=== PATIENT | male | born 1980 | race Caucasian/White ===

== ENCOUNTER 2016-11-17 02:30 | Emergency (ER) | payer OTHER ==
[2016-11-17 02:40] VITALS: BP 162/88; PULSE 85; RESP 18; TEMP 98.2
[2016-11-17] MEDS ORDERED: PENICILLIN VK 500MG STARTER 4 TAB BTL PO STA (02:50)
[2016-11-17] MEDS ORDERED: BUPIVACAINE (PF) 0.5% 30 ML VIAL SQ STA (02:50)
[2016-11-17] MEDS ORDERED: ACET/COD 300 MG/30 MG STARTER PACK 6 TAB BTL PO STA (02:50)
--- NOTE | 2016-11-17 02:53 | ED ---
ENT HPI - General Chief complaint: Dental/Oral Stated complaint: Dental Pain Time Seen by Provider: 11/17/16 02:41 Source: patient Mode of arrival: ambulatory Limitations: no limitations - Related Data Previous Rx's Medication Instructions Recorded Acetaminophen-Codeine 300-30mg 1 tab PO Q6H PRN #15 tablet 11/17/16 [Tylenol #3] Penicillin V Potassium [Pen Vee K] 500 mg PO QID #40 tab 11/17/16 Allergies Allergy/AdvReac Type Severity Reaction Status Date / Time No Known Allergies Allergy Verified 11/17/16 02:38 Review of Systems ROS Statement: Those systems with pertinent positive or pertinent negative responses have been documented in the HPI. ROS Other: All systems not noted in ROS Statement are negative. Past Medical History Past Medical History: No Reported History History of Any Multi-Drug Resistant Organisms: None Reported Past Surgical History: Orthopedic Surgery Past Psychological History: No Psychological Hx Reported Smoking Status: Current every day smoker Past Alcohol Use History: None Reported Past Drug Use History: None Reported General Exam Limitations: no limitations General appearance: alert, in no apparent distress Head exam: Present: atraumatic, normocephalic, normal inspection Eye exam: Present: normal appearance, PERRL, EOMI. Absent: scleral icterus, conjunctival injection, periorbital swelling ENT exam: Present: normal exam, mucous membranes moist, other. Absent: normal oropharynx (Tooth number 30 is broken), TM's normal bilaterally Neck exam: Present: normal inspection. Absent: tenderness, meningismus, lymphadenopathy Respiratory exam: Present: normal lung sounds bilaterally. Absent: respiratory distress, wheezes, rales, rhonchi, stridor Cardiovascular Exam: Present: regular rate, normal rhythm, normal heart sounds. Absent: systolic murmur, diastolic murmur, rubs, gallop, clicks GI/Abdominal exam: Present: soft, normal bowel sounds. Absent: distended, tenderness, guarding, rebound, rigid Extremities exam: Present: normal inspection, full ROM, normal capillary refill. Absent: tenderness, pedal edema, joint swelling, calf tenderness Back exam: Present: normal inspection Neurological exam: Present: alert, oriented X3, CN II-XII intact Psychiatric exam: Present: normal affect, normal mood Skin exam: Present: warm, dry, intact, normal color. Absent: rash Course Vital Signs 11/17/16 02:38 Temperature 98.2 F Pulse Rate 85 Respiratory 18 Rate Blood Pressure 162/88 O2 Sat by Pulse 98 Oximetry Disposition Clinical Impression: Pain, dental, Broken tooth Disposition: HOME SELF-CARE Condition: Good Instructions: Toothache (ED) Additional Instructions: [facility] [address], [place] [address] [phone] (existing clients only) For new clients: [phone] 1st consult: $50 (includes Xrays) Usually 30% less then private dentist for visits after. [employer] Have to pay $50 for Xrays anmd rest is covered. [phone] Prescriptions: Acetaminophen-Codeine 300-30mg [Tylenol #3] 1 tab PO Q6H PRN #15 tablet PRN Reason: Pain Penicillin V Potassium [Pen Vee K] 500 mg PO QID #40 tab Referrals: Westley Myrick MD [Primary Care Provider] - 1-2 days Time of Disposition: 02:51
== END 2016-11-17 03:23 | disposition home or self-care (01) ==
LOC: EC 02:30
DX: S02.5XXA Fracture of tooth (traumatic), initial encounter for closed fracture (principal); F17.200 Nicotine dependence, unspecified, uncomplicated; X58.XXXA Exposure to other specified factors, initial encounter
CPT/HCPCS: 99282

== ENCOUNTER 2017-11-21 11:49 | Day surgery (SDC) | payer OTHER ==
[~2017-11-21 11:49] MED LIST: LACTATED RINGERS 1,000 ML IV SCH; SODIUM CHLORIDE 0.9% 1,000 ML IV SCH
[2017-11-21 12:45] LABS: Basophils % (A) 1 %; Eosinophils % (A) 0 %; HCT 44.4 % (39.0-53.0); HGB 15.5 gm/dL (13.0-17.5); Lymphocytes % (A) 24 %; MCH 31.8 pg (25.0-35.0); MCHC 34.8 g/dL (31.0-37.0); MCV 91.3 fL (80.0-100.0); Mean Platelet Volume 7.1; Monocytes # (A) 0.5 k/uL (0-1.0); Monocytes % (A) 6 %; Neutrophils # (A) 5.6 k/uL (1.3-7.7); Neutrophils % (A) 67 %; Platelet Count 196 k/uL (150-450); RBC 4.86 m/uL (4.30-5.90); WBC 8.3 k/uL (3.8-10.6)
[2017-11-21 13:02] LABS: Anion Gap 8 mmol/L; Blood Urea Nitrogen 14 mg/dL (9-20); Calcium 9.4 mg/dL (8.4-10.2); Carbon Dioxide 23 mmol/L (22-30); Chloride 108 mmol/L (98-107); Glucose 99 mg/dL (74-99); Potassium 4.4 mmol/L (3.5-5.1); Sodium 139 mmol/L (137-145)
[2017-11-21] MEDS ORDERED: fentaNYL (PF) 50 MCG/ML 2 ML AMP ONE (13:24)
[2017-11-21] MEDS ORDERED: IV FLUID CONTINUATION 900 ML IV ONE (13:24)
[2017-11-21] MEDS ORDERED: ROCURONIUM BROMIDE 10 MG/ML 10 ML VIAL IV ONE (13:24)
[2017-11-21] MEDS ORDERED: SUCCINYLCHOLINE CHLORIDE 100 MG/5 ML SYR IV ONE (13:24)
[2017-11-21] MEDS ORDERED: NEOSTIGMINE 1 MG/ML 10 ML VIAL ONE (13:24)
[2017-11-21] MEDS ORDERED: PROPOFOL 10 MG/ML 20 ML VIAL IV ONE (13:24)
[2017-11-21] MEDS ORDERED: GLYCOPYRROLATE 0.2 MG/ML 2 ML VIAL ONE (13:24)
[2017-11-21] MEDS ORDERED: MIDAZOLAM 2 MG/2 ML VIAL ONE (13:24)
[2017-11-21] MEDS ORDERED: LIDOCAINE 1% INJ 10MG/ML (20 ML MDV) ONE ×4 (13:24→14:08)
[2017-11-21] MEDS ORDERED: ISOPROTERENOL 250 MCG/1.25 ML SYR IV ONE (13:24)
[2017-11-21] MEDS ORDERED: PROTAMINE SULFATE 10 MG/ML 5 ML VIAL IV ONE (13:24)
[2017-11-21] MEDS ORDERED: PHENYLEPHRINE-0.9% NACL SYG 1 MG/10 ML SYRINGE ONE (13:24)
[2017-11-21] MEDS ORDERED: LIDOCAINE URO-JET JELLY 2% 5 ML KIT ONE (13:40)
[2017-11-21] MEDS ORDERED: HEPARIN SODIUM,PORCINE 30 ML 30 ML ONE (13:47)
[2017-11-21] MEDS ORDERED: LIDOCAINE 1% INJ 10MG/ML (20 ML MDV) SQ ONE ×2 (14:08→14:09)
[2017-11-21] MEDS ORDERED: ADENOSINE 3 MG/ML 4 ML VIAL IVP ONE (14:46)
[2017-11-21] MEDS ORDERED: HEPARIN SODIUM (1,000 UNIT/ML) 1,000 UNIT in SODIUM CHLORIDE 0.9% 1,000 ML IRRIGATION ONE (15:46)
[2017-11-21] MEDS ORDERED: HEPARIN SOD,PORK IN 0.45% NACL 25,000 UNIT in 0.45% NACL 1 500ML.BAG IV ONE (15:46)
[2017-11-21] MEDS ORDERED: SODIUM CHLORIDE 0.9% 1,000 ML IV ONE (16:00)
[2017-11-21] MEDS ORDERED: ACETAMINOPHEN TAB 325 MG TAB PO PRN (18:13)
[2017-11-21] MEDS ORDERED: ACETAMINOPHEN IV (For NPO) 1,000 MG in EMPTY BAG 1 BAG IVPB ONE (18:13)
[2017-11-21] MEDS ORDERED: HYDROcodone/APAP 5-325MG 1 EACH TAB PO PRN (18:13)
[2017-11-21] MEDS ORDERED: SODIUM CHLORIDE 0.9% 250 ML IV ONE (18:47)
--- NOTE | 2017-11-21 19:52 | LTR ---
Dear Dr. Myrick: Gareth Ewing was underwent diagnostic EP study for recurrent palpitations. 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 This was a retrogradely only conducting pathway and the tachycardia was rendered noninducible. He will take aspirin 325 mg p.o. daily for the 1st month and then can discontinue thereafter. Metoprolol has been discontinued. Thank you for entrusting us with the care of your patient. Warm regards. Sincerely, [email or web address] / IJN: [id number] /
--- NOTE | 2017-11-21 19:52 | CE ---
CARDIAC ELECTROPHYSIOLOGY REPORT This is a 37-year-old male patient who has had recurrent palpitations since the age of 12 years, who was referred by Dr. Niyah Gold who after he was admitted to [facility] with supraventricular tachycardia. Patient was brought to the EP lab in a fasting state. Written informed consent was obtained prior to the procedure. The initial diagnostic part of the study was performed under conscious sedation. The patient has sleep apnea and could not lay still. The rest of the procedure, including mapping and ablation, was performed under general anesthesia. Venous sheaths were placed in the right and left femoral veins. Two venous sheaths in the left venous sheaths and the right femoral veins. Diagnostic catheters placed high right atrial catheter, His bundle catheter, RV catheter, coronary sinus catheter, and later mapping ablation catheter and intracardiac echo catheter. Sinus cycle length was 614 milliseconds. VA interval 131 milliseconds, QRS 93 milliseconds, QT 339 millisecond, AH and HV intervals were within normal limits. Sinus node recovery times of 600 and 504 milliseconds and 785 and 753 milliseconds. SVT was induced with minimal pacing, mostly with double extrastimuli from the HRA as well as from the coronary sinus. Tachycardia cycle length 300 milliseconds. Eccentric conduction in the coronary sinus noted. Pacing maneuvers would repeatedly terminate the tachycardia. The post pacing interval was short and the post pacing interval minus tachycardia cycle length was less than 100 milliseconds, consistent with orthodromic re- entry. There was no evidence of slow pathway conduction and no antegrade accessory pathway conduction noted. This was purely retrograde conduction conducting accessory pathway. This pathway was anterolateral and the coronary sinus catheter was moved proximally and then more distally to bracket the area and with pacing on either side of the approximate area of the retrograde accessory pathway, it was determined that this was an oblique pathway with a medial to lateral orientation in the very distal poles close to around CS3-4. Intracardiac echo cardiography was performed. 3D anatomic mapping was performed. Left and right transseptal catheterization was performed. RA pressure 17 x 10 x 14 and LA pressure 20 x 10 x 15 mmHg. Map and tungsten tender tip ablation catheter was placed in the left atrium. The mitral anulus was carefully mapped, mostly during orthodromic reentry. This was also mapped with LV pacing from the lateral LV by placing the coronary sinus catheter more ventricularward. With both techniques, the earliest activation site was fairly similar, but was closer to CS5-6; however, the bracketing was more close to CS2- 3. Detailed mapping was performed. Initially, we targeted area of earliest activation site during orthodromic reentry, but the contact force was not adequate and therefore even though termination occurred on multiple occasions, we were not able to completely eliminate the pathway. Finally with the CS catheter in the normal location with CS9-10 exactly at the os and the distal pole in the more lateral position, RF ablation was applied and just shy of the distal pole around the CS2-3 and a shift in the retrograde activation was noted. RF ablation was applied here with good contact force and power and the pathway was eliminated. Following that, Isuprel was used and pacing maneuvers were performed in the CS and the RV and no arrhythmias could be induced. During the procedure, adenosine was also given and this induced brief atrial fibrillation of less than 15 seconds with spontaneous termination. The patient tolerated the procedure well without any acute complications. RESULT: Diagnostic EP study revealing orthodromic reentry, successful mapping and ablation of the anterolateral retrogradely conducting accessory pathway without any antegrade conduction. PLAN: Aspirin 325 mg p.o. daily for 1 month. Heparin was reversed at the end of the procedure. MMODL / IJN: [id number] /
[2017-11-21] MEDS ORDERED: ASPIRIN 325 MG TAB ONE (21:00)
[2017-11-21] MEDS ORDERED: APIXABAN 5 MG TAB ONE (21:00)
[2017-11-21 21:06] VITALS: BMI 40.9
[2017-11-22 05:29] VITALS: RESP 18
[2017-11-22] MEDS: ASPIRIN 325 MG TAB PO SCH ×2 (07:51→08:43)
[2017-11-22] MEDS: APIXABAN 5 MG TAB PO SCH ×2 (07:53→08:43)
[2017-11-22 08:07] VITALS: BP 124/84; PULSE 98; TEMP 98.4
--- NOTE | 2017-11-22 10:53 | P.DS ---
Providers Attending physician: Johnny Nye Primary care physician: Westley Elizondo [facility] Course: Impression is doing well. He is walking around in the hallways. No groin problems. No hematoma or swelling Vitals are stable. 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 Lomas in 2-3 weeks Will be discharged home today Plan - Discharge Summary Discharge Rx Participant: Yes New Discharge Prescriptions: New Aspirin EC [Ecotrin] 325 mg PO DAILY #90 tablet. Discontinued Metoprolol Tartrate [Lopressor] 50 mg PO BID Aspirin [Adult Low Dose Aspirin EC] 81 mg PO DAILY Discharge Medication List Aspirin EC [Ecotrin] 325 mg PO DAILY #90 tablet. 11/21/17 [Rx] Follow up Appointment(s)/Referral(s): Johnny Nye MD [STAFF PHYSICIAN] - 2 Weeks Activity/Diet/Wound Care/Special Instructions: Post EP study - Ablation instructions 1. Keep access sites dry for 2 days. 2. No heavy lifting or straining for 2 days. 3. Avoid bending the hips repeatedly for 2 days. 4. You may go up and down stairs slowly Call if the following is noted 1. Bleeding, increasing swelling or pain at the access sites. 2. Increasing chest discomfort, especially upon taking a deep breath. 3. Increasing shortness of breath, at rest or with exertion. 4. Undue cough / phlegm 5. Difficulty or pain while swallowing. 6. Pain or change in color in the extremities. 7. Fever, chills, rigors. 8. Increasing headache or neurologic symptoms. 9. Dizziness, fainting, palpitations Full dose aspirin 325 mg by mouth daily for one month No ELIQUIS at home Stop metoprolol Discharge Disposition: HOME SELF-CARE
--- NOTE | 2017-11-22 18:23 | CONS ---
CONSULTATION CHIEF COMPLAINT: Palpitations and rapid heart beating. HISTORY OF PRESENT ILLNESS: This gentleman is brought in for elective cardioversion. REVIEW OF SYSTEMS: He has had no headaches, CVAs, TIAs, chest pain, etc. Past medical history, family history, personal and social histories can be found and in his admitting summary. Not allergic to any medication. He has been on: 1. Metoprolol 25 mg twice a day and. 2. Symbicort 80, 2 puffs twice a day. He does continue to smoke. PHYSICAL EXAM: Blood pressure is 138/98 with a pulse of 84, respirations of 18. He is afebrile. GENERAL: He appeared to be overweight, in no acute distress. Skin color is normal. Skin is warm, dry. Lymph nodes are not enlarged. Head, ears, eyes, nose, mouth, and throat were normal. Neck veins are not distended. Thyroid is not enlarged. Chest is clear. Cardiac demonstrates atrial fibrillation. The abdomen is soft, nontender, appeared slightly protuberant. EXTREMITIES: Normal. Neurologically, he is intact. IMPRESSION: 1. Atrial fibrillation. 2. Chronic obstructive pulmonary disease. 3. Paroxysmal atrial fibrillation. RECOMMENDATIONS: None. MMODL / IJN: [id number] /
--- NOTE | 2017-11-22 18:29 | PN ---
PROGRESS NOTE DATE OF SERVICE: 11/22/2017 CHIEF COMPLAINT: Atrial fibrillation, status post ablation. HISTORY OF PRESENT ILLNESS: This gentleman is doing well and he is back in sinus rhythm. He is going home today. He has had no chest pain, shortness of breath, palpitations, etc. PHYSICAL EXAM: Color is good. Vital signs are normal. Chest is clear. Cardiac is normal in sinus rhythm. IMPRESSION: Status post ablation. PLAN: Home today. MMODL / IJN: [id number] /
== END 2017-11-22 11:50 | disposition home or self-care (01) ==
LOC: CATHEP 11:49 → 3OBS 18:03 → CATHEP 11-22 11:50
PROVIDERS: ATTEND Internal Medicine Clinical Cardiac Electrophysiology
DX: I47.1 Supraventricular tachycardia (principal); I48.0 Paroxysmal atrial fibrillation; I10 Essential (primary) hypertension; J44.9 Chronic obstructive pulmonary disease, unspecified; F17.210 Nicotine dependence, cigarettes, uncomplicated; Z82.49 Family history of ischemic heart disease and other diseases of the circulatory system; G47.33 Obstructive sleep apnea (adult) (pediatric); Z79.82 Long term (current) use of aspirin; Z79.899 Other long term (current) drug therapy; Z79.51 Long term (current) use of inhaled steroids
CPT/HCPCS: 93623; 93662; 93613; 93653; 85347; 80048; 85025; C1769 ×3; C1894; C1730 ×2; C1759; C1893; C1732; J2001; J1644 ×2; J0153